=== PATIENT | female | born 2000 | race Caucasian/White ===

== ENCOUNTER 2021-06-04 16:16 | Emergency (ER) | payer OTHER ==
[~2021-06-04] VITALS: Ht 154.9 cm; Wt 81.4 kg
[2021-06-04 18:20] LABS: HEMATOCRIT 43.8 % (36.0-47.0); HEMOGLOBIN 14.6 g/dl (12.0-15.5); MEAN CORPUSCULAR HEMOGLOBIN 28.7 pg (27.0-33.0); MEAN CORPUSCULAR HGB CONC 33.3 g/dl (32.0-36.5); MEAN CORPUSCULAR VOLUME 86.1 fl (80.0-96.0); PLATELET COUNT, AUTOMATED 416 10^3/uL (150-450); RED BLOOD COUNT 5.09 10^6/uL (4.00-5.40); WHITE BLOOD COUNT 10.5 10^3/uL (4.0-10.0)
--- NOTE | 2021-06-04 19:45 | REP ---
INDICATION: vaginal bleeding. COMPARISON: None. TECHNIQUE: Transabdominal imaging with the bladder is acoustic window. Patient declined Ev probe at this time. FINDINGS: Uterus is anteverted measuring 5.3 x 3.1 x 5.1 cm. The central endometrial echogenic stripe has a thickness of 6.6 mm. Uterine contour is smooth. There is no uterine mass. There is no gestational sac or fluid within the endometrial cavity. Exam quite limited with under filled bladder and only transabdominal images. Neither ovary could be seen with transabdominal images at this time. IMPRESSION: Transabdominal imaging only showed the endometrial stripe with 6.6 mm thickness and no gestational sac or fluid collection within. The beta hCG is 501. Patient declined Ev probe at this time. By LMP she is 4 weeks 5 days. Findings could represent completed spontaneous or very early . Follow-up with beta HCG and ultrasound at clinically appropriate interval. Adnexa are not seen on this examination. Accordingly I cannot exclude or confirm presence of cyst, mass or fluid. <Electronically signed by Mark Blum > 06/04/211940
[2021-06-04 20:12] VITALS: BP 125/70
== END 2021-06-04 20:14 | disposition home or self-care (01) ==
LOC: M ED 16:16
DX: O20.9 Hemorrhage in early pregnancy, unspecified (principal); Z88.2 Allergy status to sulfonamides; Z88.8 Allergy status to other drugs, medicaments and biological substances

== ENCOUNTER → 2021-06-07 | Outpatient (CLI) | payer OTHER | LOC: M LAB 08:42 | PROVIDERS: ATTEND Physician Assistant | DX: O26.859 Spotting complicating pregnancy, unspecified trimester (principal) ==

== ENCOUNTER → 2021-12-22 | Outpatient (REF) | payer OTHER ==
[2021-12-22 12:35] LABS: HEMATOCRIT 43.6 % (36.0-47.0); HEMOGLOBIN 14.3 g/dl (12.0-15.5); MEAN CORPUSCULAR HEMOGLOBIN 29.2 pg (27.0-33.0); MEAN CORPUSCULAR HGB CONC 32.8 g/dl (32.0-36.5); PLATELET COUNT, AUTOMATED 355 10^3/uL (150-450); WHITE BLOOD COUNT 9.9 10^3/uL (4.0-10.0)
[2021-12-22 13:23] LABS: HCG, SERUM QUANTITATIVE 121999 MIU/ML
[2021-12-22 13:28] LABS: HEPATITIS B SURFACE ANTIGEN NEGATIVE (NEGATIVE)
[2021-12-22 13:56] LABS: HEPATITIS C VIRUS ABY INDEX 0.1 INDEX (<0.8)
[2021-12-22 13:57] LABS: HIV 1&2 SCREEN CENTAUR NEGATIVE (NEGATIVE)
== END ==
LOC: M LAB REF 12:18
PROVIDERS: ATTEND Obstetrics & Gynecology
DX: Z32.01 Encounter for pregnancy test, result positive (principal)

== ENCOUNTER 2022-01-13 06:16 | Emergency (ER) | payer OTHER ==
[~2022-01-13] VITALS: Ht 154.9 cm; Wt 81.9 kg
[2022-01-13 06:17] VITALS: BP 142/72
[2022-01-13] MEDS ORDERED: ACETAMINOPHEN TAB 650MG DOSE (2X325MG) PO ONE (07:05)
== END 2022-01-13 07:39 | disposition home or self-care (01) ==
LOC: M ED 06:16
DX: O26.891 Other specified pregnancy related conditions, first trimester (principal); M25.562 Pain in left knee; M25.572 Pain in left ankle and joints of left foot; Z3A.11 11 weeks gestation of pregnancy; Z88.2 Allergy status to sulfonamides; Z88.8 Allergy status to other drugs, medicaments and biological substances

== ENCOUNTER → 2022-05-09 | Outpatient (CLI) | payer OTHER ==
[2022-05-09 12:59] LABS: HEMATOCRIT 35.2 % (36.0-47.0); HEMOGLOBIN 11.5 g/dl (12.0-15.5); MEAN CORPUSCULAR HEMOGLOBIN 29.8 pg (27.0-33.0); MEAN CORPUSCULAR HGB CONC 32.7 g/dl (32.0-36.5); MEAN CORPUSCULAR VOLUME 91.2 fl (80.0-96.0); PLATELET COUNT, AUTOMATED 279 10^3/uL (150-450); RED BLOOD COUNT 3.86 10^6/uL (4.00-5.40); WHITE BLOOD COUNT 11.8 10^3/uL (4.0-10.0)
== END ==
LOC: M LAB 11:12
PROVIDERS: ATTEND Obstetrics & Gynecology
DX: Z34.82 Encounter for supervision of other normal pregnancy, second trimester (principal)

== ENCOUNTER → 2022-05-16 | Outpatient (CLI) | payer OTHER ==
[~2022-05-16] MED LIST: PRENTAB9 PO
== END ==
LOC: M LAB 07:44
PROVIDERS: ATTEND Obstetrics & Gynecology
DX: O99.810 Abnormal glucose complicating pregnancy (principal)

== ENCOUNTER 2022-05-17 11:09 | Outpatient (CLI) | payer OTHER ==
[~2022-05-17] VITALS: Ht 154.9 cm; Wt 86.5 kg
[2022-05-17 11:27] VITALS: BP 115/59
[2022-05-17] MEDS ORDERED: PRENTAB9 PO (11:38)
[2022-05-17] MEDS ORDERED: HOME MED LIST COMPLETE! XX SCH (11:40)
[2022-05-17 12:43] LABS: APPEARANCE, URINE MANUAL CLEAR (CLEAR); COLOR, URINE MANUAL YELLOW (YELLOW); SPECIFIC GRAVITY,URINE MANUAL 1.002 (1.002-1.035)
[2022-05-17 12:46] LABS: BILIRUBIN, URINE MANUAL NEGATIVE (NEGATIVE); BLOOD URINE MANUAL NEGATIVE (NEGATIVE); GLUCOSE, URINE (UA) MANUAL NEGATIVE (NEGATIVE); KETONE, URINE MANUAL NEGATIVE (NEGATIVE); LEUKOCYTE ESTERASE, URINE MAN POSITIVE (NEGATIVE); NITRITE, URINE MANUAL NEGATIVE (NEGATIVE); PROTEIN, URINE MANUAL TRACE mg/dL (NEGATIVE); UROBILINOGEN, URINE MANUAL NORMAL (NORMAL)
[2022-05-17 12:53] LABS: BACTERIA, URINE MOD AMOUNT; HYALINE CAST, URINE NONE SEEN /lpf (0-1); MUCUS, URINE MOD AMOUNT (NEGATIVE); RBC, URINE NONE SEEN /hpf (0-3); SQUAMOUS EPITHELIAL CELL URINE SMALL AMOUNT /hpf (SMALL AMT)
[2022-05-17 14:19] LABS: GC DNA AMPLIFICATION NEGATIVE (NEGATIVE)
== END 2022-05-17 12:54 | disposition home or self-care (01) ==
LOC: M LDO 11:09
PROVIDERS: ATTEND Obstetrics & Gynecology
DX: O26.853 Spotting complicating pregnancy, third trimester (principal); O26.893 Other specified pregnancy related conditions, third trimester; R10.10 Upper abdominal pain, unspecified; N84.1 Polyp of cervix uteri; Z3A.29 29 weeks gestation of pregnancy
CPT/HCPCS: 59025; 81000; 87086; 87661; 87810; 87850; G0378; G0463

== ENCOUNTER 2022-07-01 20:47 | Outpatient (CLI) | payer OTHER ==
[~2022-07-01] VITALS: Ht 154.9 cm; Wt 90.2 kg
[2022-07-01 21:05] VITALS: BP 142/96
[2022-07-01 22:21] VITALS: BP 139/87
== END 2022-07-01 22:37 | disposition home or self-care (01) ==
LOC: M LDO 20:47
PROVIDERS: ATTEND Advanced Practice Midwife
DX: O26.893 Other specified pregnancy related conditions, third trimester (principal); R10.30 Lower abdominal pain, unspecified; Z3A.35 35 weeks gestation of pregnancy
CPT/HCPCS: 59025; G0463

== ENCOUNTER → 2022-07-12 | Outpatient (REF) | payer OTHER | LOC: M LAB REF 16:20 | PROVIDERS: ATTEND Obstetrics & Gynecology | DX: Z34.83 Encounter for supervision of other normal pregnancy, third trimester (principal) ==

== ENCOUNTER 2022-07-29 02:43 | Inpatient (IN) | payer OTHER ==
[~2022-07-29] VITALS: Ht 154.9 cm; Wt 93.7 kg
[2022-07-29] VITALS (44 sets, daily range): BP systolic 108–143; BP diastolic 55–93
[2022-07-29] MEDS ORDERED: PENICILLIN G POTASSIUM 5 MU IV 5 MU in D5W MINI-BAG PLUS 100 ML IV STA (03:27)
[2022-07-29] MEDS ORDERED: LACTATED RINGER'S 1000 ML IV STA (03:27)
[2022-07-29] MEDS: LR 1,000 ML IV SCH ×2 (03:30→11:53)
[2022-07-29] MEDS ORDERED: LIDOCAINE 1% MDV 20ML VIAL INFIL PRN (03:30)
[2022-07-29] MEDS ORDERED: OXYTOCIN DRIP 30 UNITS in IV 1 EA IV PRN (03:30)
[2022-07-29 04:11] LABS: HEMATOCRIT 37.5 % (36.0-47.0); HEMOGLOBIN 12.5 g/dl (12.0-15.5); MEAN CORPUSCULAR HEMOGLOBIN 29.6 pg (27.0-33.0); MEAN CORPUSCULAR HGB CONC 33.3 g/dl (32.0-36.5); MEAN CORPUSCULAR VOLUME 88.9 fl (80.0-96.0); PLATELET COUNT, AUTOMATED 246 10^3/uL (150-450); RED BLOOD COUNT 4.22 10^6/uL (4.00-5.40); WHITE BLOOD COUNT 12.3 10^3/uL (4.0-10.0)
[2022-07-29] MEDS ORDERED: NALOXONE INJ 0.4MG/1ML VIAL IV PRN (05:20)
[2022-07-29] MEDS ORDERED: LR 500 ML IV PRN (05:20)
[2022-07-29] MEDS ORDERED: diphenhydrAMINE 50MG/ML VIAL IV PRN (05:20)
[2022-07-29] MEDS ORDERED: ePHEDrine SULFATE 25 MG/5 ML(5MG/ML) SYRINGE IVP PRN (05:20)
[2022-07-29] MEDS ORDERED: EPIDURAL/PCA KEYS XX PRN (05:20)
[2022-07-29] MEDS ORDERED: ONDANSETRON 4MG 2ML VIAL IV PRN (05:20)
[2022-07-29] MEDS: FENTANYL/ROPIVACAINE/NACL BAG 100 ML EPIDURAL SCH ×2 (05:46→13:49)
[2022-07-29] MEDS: PEN G POT 3,000,000 UNIT/50 ML 3,000,000 UNIT in IV 1 EA IV SCH ×3 (07:44→15:55)
[2022-07-29] MEDS ORDERED: OXYTOCIN DRIP 30 UNITS in IV 1 EA IV SCH (08:35)
[2022-07-29] MEDS ORDERED: PRENATAL VITAMINS CHEWABLE TABLET PO SCH (09:00)
[2022-07-29] MEDS ORDERED: ACETAMINOPHEN 500 MG TAB PO PRN (19:45)
[2022-07-29] MEDS ORDERED: DIBUCAINE 1% OINTMENT 30GM TOP PRN (19:45)
[2022-07-29] MEDS ORDERED: METHYLERGONOVINE MALEATE 0.2 MG TAB PO PRN (19:45)
[2022-07-29] MEDS ORDERED: DOCUSATE SODIUM 100MG CAPSULE PO PRN (19:45)
[2022-07-29] MEDS ORDERED: RHOGAM 300MCG (1500IU) INJ IM SCH (19:45)
[2022-07-30] MEDS: IBUPROFEN 600MG TAB PO PRN ×2 (00:27→15:20)
[2022-07-30 06:00] VITALS: BP 136/82
[2022-07-30 18:00] VITALS: BP 139/82
[2022-07-31] MEDS ORDERED: MEASLES,MUMPS,RUBELLA VACCINE INJ (MMR-II) SC.IMMUN ONE (09:00)
== END 2022-07-30 22:20 | disposition home or self-care (01) | DRG 805 ==
LOC: M LDO 02:43 → M LDI 03:15 → M OBS 22:18
PROVIDERS: ADMIT Specialist; ATTEND Advanced Practice Midwife
PROC: 10E0XZZ Delivery of Products of Conception, External Approach (ICD-10-PCS; principal; 2022-07-29)
PROC: 0KQM0ZZ Repair Perineum Muscle, Open Approach (ICD-10-PCS; 2022-07-29)
PROC: 10907ZC Drainage of Amniotic Fluid, Therapeutic from Products of Conception, Via Natural or Artificial Opening (ICD-10-PCS; 2022-07-29)
DX: O98.52 Other viral diseases complicating childbirth (principal); Z37.0 Single live birth; U07.1 COVID-19; O24.420 Gestational diabetes mellitus in childbirth, diet controlled; O99.824 Streptococcus B carrier state complicating childbirth; O70.1 Second degree perineal laceration during delivery; Z3A.39 39 weeks gestation of pregnancy